=== PATIENT | male | born 1990 | race Caucasian/White ===

== ENCOUNTER 2021-05-20 05:18 | Emergency (ER) | payer BC ==
[~2021-05-20] VITALS: Ht 182.9 cm; Wt 63.5 kg
[2021-05-20] MEDS: IV NORMAL SALINE 1000 ML BAG IV ONE (06:32)
[2021-05-20] MEDS: ONDANSETRON 4 MG/2 ML VIAL IV ONE (06:34)
[2021-05-20] MEDS: MORPHINE SULFATE 4 MG/1 ML DISP.SYRIN IV ONE (06:35)
[2021-05-20] MEDS ORDERED: ONDANSETRON 4 MG/2 ML VIAL ONE (06:39)
[2021-05-20] MEDS ORDERED: MORPHINE SULFATE 4 MG/1 ML DISP.SYRIN ONE (06:39)
[2021-05-20 07:03] LABS: HEMATOCRIT 46.5 % (36.7-47.1); MEAN CORPUSCULAR HEMOGLOBIN 30.5 uug (23.8-33.4); MEAN CORPUSCULAR VOLUME 87.6 fL (73.0-96.2); PLATELET COUNT (AUTO) 178 K/uL (152-348)
[2021-05-20 07:08] LABS: CREATININE 1.1 mg/dL (0.6-1.3); POTASSIUM 4.3 mmol/L (3.5-5.1)
[2021-05-20 07:14] LABS: BILIRUBIN,DIRECT 0.2 mg/dL (0.0-0.2); BILIRUBIN,TOTAL 1.4 mg/dL (0.2-1.0); TOTAL PROTEIN, SERUM 7.6 g/dL (6.4-8.2)
[2021-05-20] MEDS ORDERED: ONDA4TAB5 PO (10:11)
[2021-05-20] MEDS ORDERED: LOPE-195 PO (10:11)
--- NOTE | 2021-05-20 11:17 | NUR ---
Patient discharged to home in stable condition. Written and verbal after care instructions given. Patient verbalizes understanding of instructions. Stressed follow up or return to ER for worsening s/s.pt says feels better, deneis n/v/d at this point.
[2021-05-20 11:18] VITALS: BP 108/69
== END 2021-05-20 11:18 | disposition home or self-care (01) ==
LOC: ER 05:21
DX: A08.4 Viral intestinal infection, unspecified (principal); Z88.2 Allergy status to sulfonamides; Z88.8 Allergy status to other drugs, medicaments and biological substances; Z20.822 Contact with and (suspected) exposure to COVID-19
CPT/HCPCS: 36415; 74176; 80048; 80076; 83690; 85025; 87426; 96361; 96374; 96375; 99284; J2270; J2405; A4663; J7030

== ENCOUNTER 2021-09-04 11:38 | Emergency (ER) | payer BC ==
[~2021-09-04] VITALS: Ht 182.9 cm; Wt 65.8 kg
[~2021-09-04 11:38] MED LIST: LOPE-195 PO; ONDA4TAB5 PO
[2021-09-04] MEDS ORDERED: IBUPROFEN 600 MG TABLET PO ONE (12:00)
--- NOTE | 2021-09-04 12:00 | NUR ---
MD at bedside, medical screening exam in progress.
[2021-09-04] MEDS ORDERED: IBUPROFEN 600 MG TABLET ONE (12:03)
--- NOTE | 2021-09-04 13:17 | NUR ---
Patient discharged to home in stable condition. Written and verbal after care instructions given. Patient verbalizes understanding of instructions. Stressed follow up or return to ER for worsening s/s.
[2021-09-04 13:18] VITALS: BP 125/80
== END 2021-09-04 13:17 | disposition home or self-care (01) ==
LOC: ER 11:38
DX: S06.0X9A Concussion with loss of consciousness of unspecified duration, initial encounter (principal); R40.2363 Coma scale, best motor response, obeys commands, at hospital admission; R40.2143 Coma scale, eyes open, spontaneous, at hospital admission; R40.2253 Coma scale, best verbal response, oriented, at hospital admission; W19.XXXA Unspecified fall, initial encounter; Y92.89 Other specified places as the place of occurrence of the external cause; R51.9 Headache, unspecified
CPT/HCPCS: 70450; A4663